=== PATIENT | female | born 1950 | race Caucasian/White ===

== ENCOUNTER 2017-03-10 02:58 | Emergency (ER) | payer MEDICARE ==
[~2017-03-10] VITALS: Ht 162.6 cm; Wt 80.0 kg
[2017-03-10 02:59] VITALS: BP 136/86; PULSE 72; RESP 18; TEMP 97.7; O2SAT 98
[2017-03-10] MEDS ORDERED: PLAV75TA29 PO (03:14)
--- NOTE | 2017-03-10 04:06 | PD ---
HPI Chief Complaint: Fall Time Seen by Provider: 04:06 Travel History International Travel<30 days: No Contact w/Intl Traveler<30days: No Traveled to known affect area: No History of Present Illness HPI 66-year-old female came to the emergency room brought by her for a trip and fall. Patient is visiting her sister and in the dark was trying to get down the stairs and missed a step and fell down 9 steps. She injured her right side of the face and left lower part of her lower extremity and left thigh. She is able to move her legs and ambulate. Complaining of some pain. Patient has significant swelling on these injured areas. She is applying ice pack. No history of loss of consciousness. Patient is on Plavix. Vital signs were stable in triage. [facility] Past Medical History Narrative Medical List of her past medical, surgical, social and family history is reviewed from the nursing note. Cardiac Catheterization: Yes Coronary Artery Disease: Yes Diminished Hearing: No Medical other: Yes (HASHIMOTOS DISEASE, PARATHYROID) Past Surgical History Coronary Stent: Yes Joint Replacement: Yes (RIGHT KNEE) Social History Alcohol Use: No Tobacco Use: No Substance Use: No Allergies-Medications (Allergen,Severity, Reaction): Coded Allergies: vancomycin (Verified Allergy, Severe, RENAL FAILURE, 03/10/17) Sulfa (Sulfonamide Antibiotics) (Verified Allergy, Mild, Rash, 03/10/17) Comments List of her allergies reviewed from the nursing note. Reported Meds & Prescriptions Reported Meds & Active Scripts Active Hydrocodone-Acetaminophen 7.5 Mg-325 Mg Tab 1 Tab PO Q6H PRN Keflex (Cephalexin) 500 Mg Cap 500 Mg PO Q12H 7 Days Reported Xanax (Alprazolam) 0.25 Mg Tab 0.25 Mg PO Q8H PRN Ranexa ER 12 HR (Ranolazine) 500 Mg Tab 500 Mg PO BID Vesicare (Solifenacin) 5 Mg Tab 5 Mg PO DAILY Xanax (Alprazolam) 0.25 Mg Tab 0.25 Mg PO Q6H PRN Fenofibrate Micronized 134 Mg Cap 134 Mg PO DAILY Amitriptyline (Amitriptyline HCl) 10 Mg Tab 10 Mg PO HS Zolpidem (Zolpidem Tartrate) 10 Mg Tab 10 Mg PO HS PRN Carvedilol 25 Mg Tab 25 Mg PO DAILY Famotidine 20 Mg Tab 20 Mg PO DAILY Atorvastatin (Atorvastatin Calcium) 40 Mg Tab 40 Mg PO HS Amlodipine (Amlodipine Besylate) 5 Mg Tab 5 Mg PO DAILY Clonidine (Clonidine HCl) 0.1 Mg Tab 0.1 Mg PO DAILY Levothyroxine (Levothyroxine Sodium) 125 Mcg Tab 125 Mcg PO DAILY Aspirin EC (Aspirin) 81 Mg Tabdr 81 Mg PO DAILY Plavix (Clopidogrel Bisulfate) 75 Mg Tab 75 Mg PO DAILY Narrative Medication List of her home medications reviewed from the nursing note. Review of Systems Except as stated in HPI: all other systems reviewed are Neg Physical Exam Narrative GENERAL: Awake, alert, moderate distress SKIN: Focused skin assessment warm/dry. Right leg large hematoma of 5 cm x 5 cm on the lateral aspect of the thigh proximally. Large 7 cm x 6 cm hematoma on the duncan-orbital Aspect of the lower extremity. No lacerations or open wound HEAD: Atraumatic. Normocephalic. EYES: Pupils equal and round. No scleral icterus. No injection or drainage. Equal extraocular eye movement. ENT: No nasal bleeding or discharge. Mucous membranes pink and moist. Significant right-sided facial swelling with periorbital ecchymosis. Tenderness on palpation but no open lacerations. Teeth are intact. Right ear laceration NECK: Trachea midline. No JVD. CARDIOVASCULAR: Regular rate and rhythm. No murmur appreciated. RESPIRATORY: No accessory muscle use. Clear to auscultation. Breath sounds equal bilaterally. GASTROINTESTINAL: Abdomen soft, non-tender, nondistended. Hepatic and splenic margins not palpable. MUSCULOSKELETAL: No obvious deformities. No clubbing. No cyanosis. No edema. NEUROLOGICAL: Awake and alert. No obvious cranial nerve deficits. Motor grossly within normal limits. Normal speech. PSYCHIATRIC: Appropriate mood and affect; insight and judgment normal. Data Data Last Documented VS Orders Orders Complete Blood Count With Diff (03/10/17 04:09) Basic Metabolic Panel (Bmp) (03/10/17 04:09) Ct Brain W/O Iv Contrast(Rout) (03/10/17 ) Ct Facial Bones W/O Iv Cont (03/10/17 ) Tibia/Fibula (Ap/Lat) (03/10/17 ) Femur (Ap & Lat/2vws) (03/10/17 ) Acetaminophen (Tylenol) (03/10/17 04:15) Ct Hip W/O Contrast (03/10/17 ) Ed Discharge Order (03/10/17 06:37) Labs Laboratory Tests Test 03/10/17 04:45 White Blood Count 12.0 TH/MM3 Red Blood Count 4.14 MIL/MM3 Hemoglobin 12.9 GM/DL Hematocrit 37.5 % Mean Corpuscular Volume 90.7 FL Mean Corpuscular Hemoglobin 31.2 PG Mean Corpuscular Hemoglobin Concent 34.4 % Red Cell Distribution Width 13.4 % Platelet Count 167 TH/MM3 Mean Platelet Volume 8.9 FL Neutrophils (%) (Auto) 78.6 % Lymphocytes (%) (Auto) 11.7 % Monocytes (%) (Auto) 7.7 % Eosinophils (%) (Auto) 1.6 % Basophils (%) (Auto) 0.4 % Neutrophils # (Auto) 9.4 TH/MM3 Lymphocytes # (Auto) 1.4 TH/MM3 Monocytes # (Auto) 0.9 TH/MM3 Eosinophils # (Auto) 0.2 TH/MM3 Basophils # (Auto) 0.1 TH/MM3 CBC Comment DIFF FINAL Differential Comment Blood Urea Nitrogen 24 MG/DL Creatinine 1.19 MG/DL Random Glucose 116 MG/DL Calcium Level 9.3 MG/DL Sodium Level 140 MEQ/L Potassium Level 3.6 MEQ/L Chloride Level 106 MEQ/L Carbon Dioxide Level 26.7 MEQ/L Anion Gap 7 MEQ/L Estimat Glomerular Filtration Rate 45 ML/MIN MDM Medical Decision Making Medical Screen Exam Complete: Yes Emergency Medical Condition: Yes Medical Record Reviewed: Yes Differential Diagnosis Intracranial hemorrhage, facial fracture, hip fracture Narrative Course 6:34 AM blood test results are within acceptable limits. CT scan and x-rays do not show any orthopedic injury. There is large soft tissue swelling and hematoma. Possibly from underlying Plavix and aspirin. The PA will repair the auricular laceration. Please refer to his procedure note. Patient's tetanus status is up-to-date. She will go home on antibiotic prescription. Procedures EKG Prior to Arrival: No Diagnosis Primary Impression: Fall Qualified Codes: W19.XXXA - Unspecified fall, initial encounter Additional Impressions: Traumatic hematoma of multiple sites Facial hematoma Qualified Codes: S00.83XA - Contusion of other part of head, initial encounter Simple laceration of auricle of ear Qualified Codes: S01.311A - Laceration without foreign body of right ear, initial encounter Referrals: Primary Care Physician Additional Instructions: Return to the ER in 5-7 days to get the stitches taken out. Take the medication as per the prescription direction. Take Tylenol for the pain. Take the antibiotic prescription as per the direction. Return earlier if the condition worsens. Apply ice pack on the hematomas. Med/Other Pt SpecificInfo: Prescription(s) given Scripts Hydrocodone-Acetaminophen (Hydrocodone-Acetaminophen) 7.5 Mg-325 Mg Tab 1 TAB PO Q6H Y for PAIN, #10 TAB 0 Refills Prov: Valerio Hampton MD 03/10/17 Cephalexin (Keflex) 500 Mg Cap 500 MG PO Q12H for Infection for 7 Days, #14 CAP 0 Refills Prov: Valerio Hampton MD 03/10/17 Disposition: 01 DISCHARGE HOME Condition: Stable Valerio Hampton MD Mar 10, 2017 04:06
[2017-03-10] MEDS ORDERED: ACETAMINOPHEN 325 MG TAB PO ONE (04:15)
[2017-03-10] MEDS ORDERED: AMIT10TA6 PO (04:19)
[2017-03-10] MEDS ORDERED: ASPI81TA23 PO (04:19)
[2017-03-10] MEDS ORDERED: CARV25TA PO (04:19)
[2017-03-10] MEDS ORDERED: ATOR40TA16 PO (04:19)
[2017-03-10] MEDS ORDERED: FAMO20TA2 PO (04:19)
[2017-03-10] MEDS ORDERED: ZOLP10TA3 PO (04:19)
[2017-03-10] MEDS ORDERED: LEVO125T4 PO (04:19)
[2017-03-10] MEDS ORDERED: ALPR.25 PO ×2 (04:19)
[2017-03-10] MEDS ORDERED: CLON0.1T PO (04:19)
[2017-03-10] MEDS ORDERED: RANO500 PO (04:19)
[2017-03-10] MEDS ORDERED: AMLO5TAB2 PO (04:19)
[2017-03-10] MEDS ORDERED: VESI5TAB2 PO (04:19)
[2017-03-10] MEDS ORDERED: FENO134C PO (04:19)
[2017-03-10 05:04] LABS: AUTOMATED NEUTROPHIL # 9.4 TH/MM3 (1.8-7.7); BASOPHIL # 0.1 TH/MM3 (0-0.2); BASOPHIL % 0.4 % (0.0-2.0); EOSINOPHIL # 0.2 TH/MM3 (0-0.4); EOSINOPHIL % 1.6 % (0.0-4.0); HEMATOCRIT 37.5 % (35.0-46.0); HEMO FLAGS DIFF FINAL; LYMPH % 11.7 % (9.0-44.0); LYMPHOCYTE # 1.4 TH/MM3 (1.0-4.8); MEAN CELL VOLUME 90.7 FL (80.0-100.0); MEAN CORPUSCULAR HEMOGLOBIN 31.2 PG (27.0-34.0); MEAN CORPUSCULAR HGB CONC 34.4 % (32.0-36.0); MONO % 7.7 % (0.0-8.0); NEUT % 78.6 % (16.0-70.0); PLATELET COUNT 167 TH/MM3 (150-450); RED BLOOD COUNT 4.14 MIL/MM3 (4.00-5.30); RED CELL DISTRIBUTION WIDTH 13.4 % (11.6-17.2)
--- NOTE | 2017-03-10 05:05 | RADRPT ---
EXAM DATE/TIME: 03/10/2017 04:10 [facility] COMPARISON: No previous studies available for comparison. INDICATIONS : Trauma, fall down stairs. RADIATION DOSE: 56.35 CTDIvol (mGy) MEDICAL HISTORY : None SURGICAL HISTORY : None. ENCOUNTER: Initial ACUITY: 1 day PAIN SCALE: 5/10 LOCATION: cranial TECHNIQUE: Multiple contiguous axial images were obtained of the head. Using automated exposure control and adj ustment of the mA and/or kV according to patient size, radiation dose was kept as low as reasonably a chievable to obtain optimal diagnostic quality images. DICOM format image data is available electro nically for review and comparison. FINDINGS: There is a hematoma of the right cheek soft tissues measuring 4 cm in transverse dimension and 2.1 cm in AP dimension. Right periorbital soft tissue swelling is seen. There is mild atrophy of the brain without evidence for intracranial hemorrhage, mass or infarction. No obvious fractures. CONCLUSION: Right premaxillary subcutaneous hematoma and periorbital soft tissue swelling. Pascual Moreno MD on March 10, 2017 at 5:03 Board Certified Radiologist. This report was verified electronically.
--- NOTE | 2017-03-10 05:07 | RADRPT ---
EXAM DATE/TIME: 03/10/2017 04:10 [facility] COMPARISON: CT BRAIN W/O CONTRAST, March 10, 2017, 4:10. INDICATIONS : Trauma, fall down stairs. RADIATION DOSE: 36.69 CTDIvol (mGy) MEDICAL HISTORY : None SURGICAL HISTORY : None. ENCOUNTER: Initial ACUITY: 1 day PAIN SCORE: 5/10 LOCATION: neck TECHNIQUE: Volumetric scanning of the facial bones was performed. Using automated exposure control and adjustme nt of the mA and/or kV according to patient size, radiation dose was kept as low as reasonably achiev able to obtain optimal diagnostic quality images. DICOM format image data is available [email or web address] y for review and comparison. FINDINGS: There is a large degree of right periorbital soft tissue swelling, subcutaneous stranding of the kalli k, and a hematoma the right premaxillary subcutaneous tissues measuring 4 x 2.1 cm. There is signific ant subcutaneous stranding of the right perimandibular region. An obvious fracture is not seen. CONCLUSION: Facial swelling and subcutaneous hematoma identified without obvious fracture. Pascual Moreno MD on March 10, 2017 at 5:04 Board Certified Radiologist. This report was verified electronically.
--- NOTE | 2017-03-10 05:07 | RADRPT ---
EXAM DATE/TIME: 03/10/2017 04:26 [facility] COMPARISON: No previous studies available for comparison. INDICATIONS : Pt fell down staircase and landed on tile floor on left side. Pain and sweling to left hip and left l ower leg. MEDICAL HISTORY : Vic's disease, cad SURGICAL HISTORY : Total knee replacement, right. ENCOUNTER: Initial ACUITY: 1 day PAIN SCORE: 8/10 LOCATION: Left Tib-fib FINDINGS: Two view examination of the left tibia demonstrates no evidence of fracture or dislocation. Bony min eralization is normal. The soft tissue structures are intact. CONCLUSION: No acute disease. Pascual Moreno MD on March 10, 2017 at 5:06 Board Certified Radiologist. This report was verified electronically.
--- NOTE | 2017-03-10 05:08 | RADRPT ---
EXAM DATE/TIME: 03/10/2017 04:32 [facility] COMPARISON: No previous studies available for comparison. INDICATIONS : Pt fell down staircase and landed on tile floor on left side. Pain and swelling to left hip and left lower leg. MEDICAL HISTORY : Vic's disease, cad SURGICAL HISTORY : Total knee replacement, right. ENCOUNTER: Initial ACUITY: 1 day PAIN SCORE: 7/10 LOCATION: Left Femur FINDINGS: The bone density is normal. Joint space width normal. There is a subtle vertically oriented lucency a t the left proximal most femur at the trochanteric level suggesting a nondisplaced fracture. CONCLUSION: I cannot exclude a left proximal femoral trochanteric nondisplaced fracture. Pascual Moreno MD on March 10, 2017 at 5:06 Board Certified Radiologist. This report was verified electronically.
[2017-03-10 05:22] LABS: BICARBONATE 26.7 MEQ/L (21.0-32.0); POTASSIUM 3.6 MEQ/L (3.5-5.1)
--- NOTE | 2017-03-10 05:47 | RADRPT ---
EXAM DATE/TIME: 03/10/2017 05:12 [facility] COMPARISON: FEMUR LEFT (AP & LAT/2VWS), March 10, 2017, 4:32. INDICATIONS : Abnormal left femur xray. Evaluate for fracture. RADIATION DOSE: 51.89 CTDIvol (mGy) MEDICAL HISTORY : None SURGICAL HISTORY : None. ENCOUNTER: Initial ACUITY: 1 day PAIN SCALE: 3/10 LOCATION: Left Hip TECHNIQUE: Volumetric scanning of the hip was performed. Using automated exposure control and adjustment of the mA and/or kV according to patient size, radiation dose was kept as low as reasonably achievable to o btain optimal diagnostic quality images. DICOM format image data is available electronically for rev iew and comparison. FINDINGS: BONES: No evidence of fracture. Alignment is within normal limits. JOINTS: No evidence of joint narrowing or effusion. SOFT TISSUES: In the subcutaneous fat lateral to the left hip, significant stranding is noted and a small hematoma consistent with contusion. CONCLUSION: Soft tissue swelling and contusion identified. No obvious fracture. Pascual Moreno MD on March 10, 2017 at 5:43 Board Certified Radiologist. This report was verified electronically.
[2017-03-10 05:56] VITALS: BP 132/66; PULSE 58; RESP 17; O2SAT 99
[2017-03-10] MEDS ORDERED: CEPH-460 PO (06:36)
[2017-03-10] MEDS ORDERED: HYDR-3580 PO (06:43)
--- NOTE | 2017-03-10 06:45 | PD ---
Physical Exam Date Seen by Provider: Mar 10, 2017 Time Seen by Provider: 06:42 Narrative Skin: Patient has a 2 cm laceration to her right earlobe. There is a laceration through the cartilage. Positive ecchymosis and edema. The wound is neurovascular intact. No chondral hematoma Data Data Last Documented VS Vital Signs Date Time Temp Pulse Resp B/P (MAP) Pulse Ox O2 Delivery O2 Flow Rate FiO2 03/10/17 05:56 58 17 132/66 (88) 99 Room Air 03/10/17 02:59 97.7 Orders Orders Complete Blood Count With Diff (03/10/17 04:09) Basic Metabolic Panel (Bmp) (03/10/17 04:09) Ct Brain W/O Iv Contrast(Rout) (03/10/17 ) Ct Facial Bones W/O Iv Cont (03/10/17 ) Tibia/Fibula (Ap/Lat) (03/10/17 ) Femur (Ap & Lat/2vws) (03/10/17 ) Acetaminophen (Tylenol) (03/10/17 04:15) Ct Hip W/O Contrast (03/10/17 ) Ed Discharge Order (03/10/17 06:37) Labs Laboratory Tests Test 03/10/17 04:45 White Blood Count 12.0 TH/MM3 Red Blood Count 4.14 MIL/MM3 Hemoglobin 12.9 GM/DL Hematocrit 37.5 % Mean Corpuscular Volume 90.7 FL Mean Corpuscular Hemoglobin 31.2 PG Mean Corpuscular Hemoglobin Concent 34.4 % Red Cell Distribution Width 13.4 % Platelet Count 167 TH/MM3 Mean Platelet Volume 8.9 FL Neutrophils (%) (Auto) 78.6 % Lymphocytes (%) (Auto) 11.7 % Monocytes (%) (Auto) 7.7 % Eosinophils (%) (Auto) 1.6 % Basophils (%) (Auto) 0.4 % Neutrophils # (Auto) 9.4 TH/MM3 Lymphocytes # (Auto) 1.4 TH/MM3 Monocytes # (Auto) 0.9 TH/MM3 Eosinophils # (Auto) 0.2 TH/MM3 Basophils # (Auto) 0.1 TH/MM3 CBC Comment DIFF FINAL Differential Comment Blood Urea Nitrogen 24 MG/DL Creatinine 1.19 MG/DL Random Glucose 116 MG/DL Calcium Level 9.3 MG/DL Sodium Level 140 MEQ/L Potassium Level 3.6 MEQ/L Chloride Level 106 MEQ/L Carbon Dioxide Level 26.7 MEQ/L Anion Gap 7 MEQ/L Estimat Glomerular Filtration Rate 45 ML/MIN [facility] Medical Record Reviewed: Yes Supervised Visit with JOSLYN: Yes Interpretation(s) Last 24 hours Impressions Tibia/Fibula X-Ray 03/10/17 Signed Impressions: Service Date/Time: Friday, March 10, 2017 04:26 - CONCLUSION: No acute disease. Pascual Moreno MD Maxillofacial CT 03/10/17 Signed Impressions: Service Date/Time: Friday, March 10, 2017 04:10 - CONCLUSION: Facial swelling and subcutaneous hematoma identified without obvious fracture. Pascual Moreno MD Lower Extremity CT 03/10/17 Signed Impressions: Service Date/Time: Friday, March 10, 2017 05:12 - CONCLUSION: Soft tissue swelling and contusion identified. No obvious fracture. Pascual Moreno MD Head CT 03/10/17 Signed Impressions: Service Date/Time: Friday, March 10, 2017 04:10 - CONCLUSION: Right premaxillary subcutaneous hematoma and periorbital soft tissue swelling. Pascual Moreno MD Femur X-Ray 03/10/17 Signed Impressions: Service Date/Time: Friday, March 10, 2017 04:32 - CONCLUSION: I cannot exclude a left proximal femoral trochanteric nondisplaced fracture. Pascual Moreno MD Differential Diagnosis MDM: High Differential diagnoses: Fracture, sprain, strain, dislocation, contusion, neurovascular injury Narrative Course Patient laceration is closed with sutures. Procedures Procedure Narrative LACERATION LOCATION: Right earlobe LENGTH: 2 cm NUMBER OF STITCHES/ANA ROSA: 9 REPAIR: The area of the laceration was prepped with Betadine and sterilely draped. The laceration was infiltrated with 1% lidocaine with epinephrine. The wound was copiously irrigated and explored without evidence of foreign body , tendon injury or neurovascular injury. The wound was closed using 6-0 nylon. This was a simple single layer repair. A sterile dressing was applied. The patient was advised to keep the dressing clean and dry. Patient tolerated the procedure well. Diagnosis Primary Impression: Fall Qualified Codes: W19.XXXA - Unspecified fall, initial encounter Additional Impressions: Traumatic hematoma of multiple sites Simple laceration of auricle of ear Qualified Codes: S01.311A - Laceration without foreign body of right ear, initial encounter Facial hematoma Qualified Codes: S00.83XA - Contusion of other part of head, initial encounter Referrals: Primary Care Physician Patient Instructions: General Instructions Additional Instruction: Return to the ER in 5-7 days to get the stitches taken out. Take the medication as per the prescription direction. Take Tylenol for the pain. Take the antibiotic prescription as per the direction. Return earlier if the condition worsens. Apply ice pack on the hematomas. Med/Other Pt SpecificInfo: Prescription(s) given, Wound Care Scripts Cephalexin (Keflex) 500 Mg Cap 500 MG PO Q12H for Infection for 7 Days, #14 CAP 0 Refills Prov: Valerio Hampton MD 03/10/17 Disposition: 01 DISCHARGE HOME Condition: Stable Alan Ramirez Mar 10, 2017 06:45
== END 2017-03-10 07:07 | disposition home or self-care (01) ==
LOC: NEPC 02:58
DX: S01.311A Laceration without foreign body of right ear, initial encounter (principal); S00.83XA Contusion of other part of head, initial encounter; I25.10 Atherosclerotic heart disease of native coronary artery without angina pectoris; E06.3 Autoimmune thyroiditis; W10.9XXA Fall (on) (from) unspecified stairs and steps, initial encounter; Z79.02 Long term (current) use of antithrombotics/antiplatelets; Z79.82 Long term (current) use of aspirin; Z88.2 Allergy status to sulfonamides; Z88.5 Allergy status to narcotic agent
CPT/HCPCS: 12011; 70450; 70486; 73552; 73590; 73700; 80048; 85025